=== PATIENT | female | born 1990 | race Caucasian/White ===

== ENCOUNTER 2022-11-08 11:33 | Emergency (ER) | payer OTHER, MEDICAID, SELFPAY ==
[2022-11-08 11:49] VITALS: BP 149/87; PULSE 104; RESP 18; O2SAT 97
[2022-11-08 12:16] VITALS: RESP 4; O2SAT 96
[2022-11-08] MEDS: Albuterol/Ipratropium 3 ML UPD VIAL UPD (12:16)
[2022-11-08] MEDS: predniSONE 20 MG TAB 60 MG PO (12:16)
--- NOTE | 2022-11-08 12:30 | DI.RAD_ITS ---
Exam(s) XR PORTABLE CHEST AP EXAM: XR PORTABLE CHEST AP CLINICAL HISTORY: cough TECHNIQUE: 2D digital imaging was performed. COMPARISON: No exams were available for comparison FINDINGS: LUNGS: Clear. No pleural abnormality seen. HEART: Normal size. AORTA: Normal diameter. BONES: Unremarkable for age. Soft tissues: Unremarkable. IMPRESSION: No acute findings. DATA REPOSITORY: RADIATION DOSE DELIVERED:
--- NOTE | 2022-11-08 12:42 | DI.VRAD_ITS ---
PROCEDURE INFORMATION: Exam: XR Chest Exam date and time: 11/08/2022 12:05 PM Age: 31 years old Clinical indication: Cough TECHNIQUE: Imaging protocol: Radiologic exam of the chest. 1image(s) are provided. Views: 1 view. COMPARISON: MR C SPINE WO CONTRAST 08/23/2020 10:08 AM FINDINGS: Lungs: No lobar consolidation is appreciated. Pleural spaces: No pneumothorax or pleural effusion is appreciated. Heart/Mediastinum: The cardiomediastinal silhouette is normal. No cardiac decompensation is appreciated. Diaphragm: The hemidiaphragms are symmetric. Bones/joints: No fracture or dislocation is appreciated. Soft tissues: No radiopaque foreign body or subcutaneous emphysema is appreciated. IMPRESSION: No lobar consolidation is appreciated.No acute cardiopulmonary changes are appreciated. Dictated and Authenticated by: Kirill Driscoll MD. Ordering:AIDAN Cabral MD
--- NOTE | 2022-11-08 12:50 | ED.GENADUL_ITS ---
Discharge Plan Disposition Patient Disposition: Home Condition: Good Discharge Details Clinical Impression: Bronchitis Primary Care Provider: Trudy Christian ED Provider: Misha Roberts Home Meds and New Rx's Prescriptions: New prednisone 50 mg tablet 50 mg PO DAILY Qty: 5 0RF budesonide-formoterol [Symbicort] 160-4.5 mcg/actuation HFA aerosol inhaler 2 puff inhalation Q12H Qty: 10.2 0RF No Action lidocaine 5 % adhesive patch,medicated 1 patch topical DAILY Rx Instructions: leave on most painful area for up to 12 hrs naproxen sodium [Aleve] 220 mg tablet 220 mg PO BID PRN citalopram 10 mg tablet 10 mg PO DAILY medroxyprogesterone [Depo-Provera] 150 mg/mL suspension 150 mg IM Q12W ibuprofen 600 mg tablet 600 mg PO TID PRN albuterol sulfate [ProAir HFA] 90 mcg/actuation HFA aerosol inhaler 2 puff inhalation Q4H PRN Discharge Instructions Instructions: Acute Bronchitis (ED) Additional Instructions: At this time you have mild asthma and bronchitis. Thankfully the chest x-ray shows no evidence of pneumonia. Please continue to take your albuterol inhaler, 2 puffs every 4-6 hours, please also take the Symbicort inhaler, 2 puffs every 12 hours. Please take the steroid prednisone as directed. Both of these medications have been sent to your pharmacy on file. If you notice any worsening of your symptoms, or any new symptoms such as vomiting, diarrhea, fever, chills, shortness of breath, chest pain, numbness, weakness, or fainting , please return immediately to the emergency department for reevaluation. Please follow up with your primary care provider as soon as possible for reassessment and reevaluation. As always, it was a pleasure participating in your medical care today. Referrals: Trudy Christian [Primary Care Provider] - Medical Decision Making 31-year-old female with a past medical history of tobacco abuse presents today for cough and shortness of breath. Patient states that 4 days ago she began having a mild cough and some shortness of breath. This continued but then improved, today though she still has some mild shortness of breath when she tries to breathe. She denies any significant chest pain. She denies any current fever or chills. She does admit to mild right ear pain. No history of blood clots. She denies any numbness or tingling. No tearing or ripping sensation. No other complaints at this time. Exam demonstrates a well-appearing female, vital signs notably stable. Mild elevation of her heart rate. No pleuritic chest pain. Symptoms inconsistent with PE. She has diffuse wheezes throughout, concern is for asthma exacerbation. However with her 4 days of symptoms we will get a chest x-ray to rule out pneumonia. We will give a breathing treatment, monitor closely and reassess. 12:53 PM Chest x-ray shows no evidence of pneumonia. Pending fluid results. Patient will be discharged with recommendations for continued inhaler use, as well as a steroid trial. Discussed red flags for which to return. I have extensively reviewed the treatment plan and discharge instructions with the patient. I have addressed all patient concerns at this time. The patient was made aware of what symptoms to monitor for that would warrant a return to the emergency department. Discussed the plan with the patient, they demonstrate verbal understanding and agreement with our assessment and plan at this time. The documentation in this chart was dictated using [employer] dictation software. Please excuse any dictation errors. FINDINGS: Lungs: No lobar consolidation is appreciated. Pleural spaces: No pneumothorax or pleural effusion is appreciated. Heart/Mediastinum: The cardiomediastinal silhouette is normal. No cardiac decompensation is appreciated. Diaphragm: The hemidiaphragms are symmetric. Bones/joints: No fracture or dislocation is appreciated. Soft tissues: No radiopaque foreign body or subcutaneous emphysema is appreciated. IMPRESSION: No lobar consolidation is appreciated.No acute cardiopulmonary changes are appreciated. Thank you for allowing us to participate in the care of your patient. Dictated and Authenticated by: Kirill Driscoll MD 11/08/2022 12:41 PM Eastern Time ([place]) HPI General Date/Time Provider Initiated Documentation: 11/08/22 12:02 . HPI Narrative: 31-year-old female with a past medical history of tobacco abuse presents today for cough and shortness of breath. Patient states that 4 days ago she began having a mild cough and some shortness of breath. This continued but then improved, today though she still has some mild shortness of breath when she tries to breathe. She denies any significant chest pain. She denies any current fever or chills. She does admit to mild right ear pain. No history of blood clots. She denies any numbness or tingling. No tearing or ripping sensation. No other complaints at this time. Related Data Home Medications Medication Instructions Recorded Confirmed albuterol sulfate 90 mcg/actuation 2 puff inhalation Q4H PRN 08/12/20 11/08/22 aerosol inhaler (ProAir HFA) citalopram 10 mg tablet 10 mg PO DAILY 08/12/20 11/08/22 ibuprofen 600 mg tablet 600 mg PO TID PRN 08/12/20 11/08/22 medroxyprogesterone 150 mg/mL 150 mg IM Q12W 08/12/20 11/08/22 intramuscular suspension (Depo-Provera) naproxen sodium 220 mg tablet 220 mg PO BID PRN 08/12/20 11/08/22 (Aleve) lidocaine 5 % topical patch 1 patch topical DAILY 03/19/21 11/08/22 budesonide-formoterol HFA 160 2 puff inhalation Q12H #10.2 grams 11/08/22 mcg-4.5 mcg/actuation aerosol inhaler (Symbicort) prednisone 50 mg tablet 50 mg PO DAILY #5 tabs 11/08/22 Previous Rx's Medication Instructions Recorded budesonide-formoterol HFA 160 2 puff inhalation Q12H #10.2 grams 11/08/22 mcg-4.5 mcg/actuation aerosol inhaler (Symbicort) prednisone 50 mg tablet 50 mg PO DAILY #5 tabs 11/08/22 Allergies Allergy/AdvReac Type Severity Reaction Status Date / Time cat dander Allergy Verified 11/08/22 11:55 dog dander Allergy Verified 11/08/22 11:55 nickel Allergy Verified 11/08/22 11:55 General Stated Complaint: RespSymp HUSSEIN: 3 Review of Systems All systems reviewed & are unremarkable except as noted in HPI and below PFSH All Active Problems (Updated 11/08/22 @ 13:00 by Misha Roberts DO) Bronchitis (Acute) Right shoulder pain (Acute) Bilateral carpal tunnel syndrome (Acute) Medical History Anemia during puerperium Cervical myelopathy Cervical radiculopathy Chronic toe pain, right foot H/O backache Hemorrhage of rectum and anus History of neck pain Pain, joint, shoulder, right Surveillance for Depo-Provera contraception Thoracic back pain Surgical History H/O neck surgery Family History Father Asthma Alcohol abuse Mother Depression Family history of malignant neoplasm of endometrium Hypertension Social History Smoking/Tobacco Use Status: Current every day Smoking risk assessment performed?: Yes Alcohol Intake: current Details: OCCASIONAL Drug use: Never Substance use type: does not use Household members: significant other and children Housing: house Number of Children: 1 current occupation: [employer] Pets and animals: Yes Pets and animals: cat(s) What type of physical activity do you participate in: walking Seatbelt use: always Do you feel safe at home: Yes Do you feel safe in your relationship?: Yes Exam Narrative Exam Narrative: 1.Const: Well-nourished, Well-developed, appearing stated age 2.Eyes: PERRL, no conjunctival injection, and symmetrical lids. 3.ENT: Atraumatic external nose and ears. Moist MM. Neck: Symmetric, trachea midline, No thyromegaly. 4.CVS: +S1/S2, No murmurs or gallops. Peripheral pulses 2+ and equal in all extremities. Brisk capillary refill in all extremities. 5.RESP: Unlabored respiratory effort. Diffuse wheezes throughout. No crackles or rhonchi. 6.GI: Soft, Nontender/Nondistended, No hepatosplenomegaly. No guarding or rebound. 7.MSK: Normocephalic/Atraumatic, Extremities w/o deformity or ttp No cyanosis or clubbing, Normal movement of all extremities 8.Skin: Warm, Dry. No rashes or lesions. 9.Neuro: heavy duty custodian II-XII grossly intact. Sensation grossly intact, no focal neurologic deficits. 10.Psych: (AAO) x3. Appropriate mood and affect Course Vital Signs Vital signs: Vital Signs Pulse 104 H 11/08/22 11:49 Respiratory Rate 18 11/08/22 11:49 Blood Pressure 149/87 H 11/08/22 11:49 Pulse Oximetry 97 11/08/22 11:49 Temperature Source Oral 11/08/22 11:49 Pulse 104 H 11/08/22 11:49 Respiratory Rate 18 11/08/22 11:49 Respiratory Effort Non-Labored 11/08/22 11:56 Respiratory Depth Normal 11/08/22 11:56 Blood Pressure 149/87 H 11/08/22 11:49 Blood Pressure Position Sitting 11/08/22 11:49 Pulse Oximetry 96 11/08/22 12:16 Oxygen Delivery Method Room Air 11/08/22 12:16 Oxygen Flow Rate 0 11/08/22 12:16 Pain Level 3 11/08/22 11:49 Lab/Test Results Lab/Test Results: POC- Test(urine) Negative
[2022-11-08 13:39] LABS: COVID-19 PCR Negative (Negative); Influenza A PCR Positive (Negative); Influenza B PCR Negative (Negative); RSV PCR Negative (Negative)
== END 2022-11-08 13:10 | disposition home or self-care (01) ==
PROVIDERS: Emergency Provider Student in an Organized Health Care Education/Training Program; PCP Internal Medicine
DX: J40 Bronchitis, not specified as acute or chronic (principal); R00.0 Tachycardia, unspecified; Z20.822 Contact with and (suspected) exposure to COVID-19
CPT/HCPCS: 81025; 87637; 94640; 99283; 71045; 99284; J7512; J7620